=== PATIENT | male | born 1970 | race Caucasian/White ===

== ENCOUNTER 2017-09-19 18:19 | Emergency (ER) | payer SELFPAY ==
[2017-09-19 18:42] VITALS: BP 126/76; PULSE 70; RESP 18; TEMP 98.3; O2SAT 99
[2017-09-19] MEDS ORDERED: ALBUAER3 (21:17)
[2017-09-19 21:20] VITALS: BP 142/86; PULSE 74; RESP 20; O2SAT 96
--- NOTE | 2017-09-19 21:20 | PD ---
HPI Chief Complaint: Respiratory Symptoms Time Seen by Provider: 21:04 Travel History International Travel<30 days: No Contact w/Intl Traveler<30days: No Traveled to known affect area: No History of Present Illness HPI Patient is a 46-year-old [place] male who is coming in with 4 days of severe asthma exacerbation. Patient's had chronic asthma since he was a kid he actually was in [place] they gave him theophylline but he has not taken that years he has a pro-air pump with him which is not helping his symptoms and apparently bought [id number] pseudoephedrine nasal spray without relief of his congestion is a congestion sore throat and wheezing for 4 days he has not seen another doctor and he is only taking the pro-air and the Sudafed nasal spray PFSH Past Medical History Asthma: Yes ?: Not Past Surgical History Surgical History: No Previous Surgery Social History Alcohol Use: Yes (occ) Tobacco Use: No Substance Use: No Allergies-Medications (Allergen,Severity, Reaction): Coded Allergies: No Known Allergies (Verified Allergy, Unknown, 09/19/17) Reported Meds & Prescriptions Reported Meds & Active Scripts Active Guaifenesin AC Liq (Guaifenesin-Codeine Liq) 100-10 Mg/5 Ml Syrp 10 Ml PO Q6H PRN Pseudoephedrine (Pseudoephedrine HCl) 60 Mg Tab 60 Mg PO Q6HR Amoxicillin 250 Mg Cap 250 Mg PO TID Prednisone 50 Mg Tab 50 Mg PO DAILY Ventolin Hfa 18 GM Inh (Albuterol Sulfate) 90 Mcg/Act Aer 2 Puff INH Q6H PRN Reported Proair Hfa (Albuterol Sulfate) 90 Mcg Hfa.aer.ad Review of Systems Except as stated in HPI: all other systems reviewed are Neg Respiratory: Positive: Cough, Shortness of Breath, Wheezing Physical Exam Narrative GENERAL: Patient has no obvious respiratory distress he is able to talk in full sentences SKIN: Warm and dry. HEAD: Atraumatic. Normocephalic. EYES: Pupils equal and round. No scleral icterus. No injection or drainage. ENT: No nasal bleeding or discharge. Mucous membranes pink and moist. Patient has nasal congestion and reddened nares NECK: Trachea midline. No JVD. CARDIOVASCULAR: Regular rate and rhythm. RESPIRATORY: No accessory muscle use. Patient has expiratory wheeze in the upper airway bilateral. Lower lobes did not seem to have expiratory wheeze GASTROINTESTINAL: Abdomen soft, non-tender, nondistended. Hepatic and splenic margins not palpable. MUSCULOSKELETAL: Extremities without clubbing, cyanosis, or edema. No obvious deformities. NEUROLOGICAL: Awake and alert. No obvious cranial nerve deficits. Motor grossly within normal limits. Five out of 5 muscle strength in the arms and legs. Normal speech. PSYCHIATRIC: Appropriate mood and affect; insight and judgment normal. Data Data Last Documented VS Vital Signs Date Time Temp Pulse Resp B/P (MAP) Pulse Ox O2 Delivery O2 Flow Rate FiO2 09/19/17 23:13 09/19/17 22:32 67 20 99 Room Air 09/19/17 22:04 21 09/19/17 18:42 98.3 Orders Orders Albuterol-Ipratropium Neb (Duoneb Neb) (09/19/17 21:30) Prednisone (Deltasone) (09/19/17 21:30) Fluticasone Stan Spr (Flonase Stan Spr) (09/19/17 21:30) Influenzae A/B Antigen (09/19/17 21:21) Group A Rapid Strep Screen (09/19/17 21:21) Pseudoephedrine (Sudafed) (09/19/17 21:45) Strep Culture (Group A) (09/19/17 21:25) Albuterol-Ipratropium Neb (Duoneb Neb) (09/19/17 22:45) Ed Discharge Order (09/19/17 23:09) MDM Medical Decision Making Medical Screen Exam Complete: Yes Emergency Medical Condition: Yes Differential Diagnosis Patient has upper respiratory infection with reactive airway versus asthma versus allergy versus bronchitis versus bronchitis Narrative Course Patient is symptomatically treated with DuoNeb and I order Flonase steroid spray for his nasal congestion as well as Sudafed p.o. and guaifenesin cough syrup. Patient is treated 2 with the DuoNeb he feels much improved flu swab was negative strep throat is negative I discharge him with symptomatic treatment he satting 99 on room air no distress. I give him Rx is for albuterol HFA as well as cough syrup as well as Sudafed as well as the Flonase as well as prednisone and discharged to follow-up as an outpatient Diagnosis Primary Impression: Asthma Qualified Codes: J45.909 - Unspecified asthma, uncomplicated Additional Impression: Upper respiratory infection Patient Instructions: Acute Bronchitis (ED), Asthma (ED), General Instructions Scripts Guaifenesin-Codeine Liq (Guaifenesin AC Liq) 100-10 Mg/5 Ml Syrp 10 ML PO Q6H Y for COUGH, #1 BOTTLE 0 Refills Prov: Gael Guerra MD 09/19/17 Pseudoephedrine (Pseudoephedrine) 60 Mg Tab 60 MG PO Q6HR for Nasal Congestion, #20 TAB 0 Refills Prov: Gael Guerra MD 09/19/17 Amoxicillin (Amoxicillin) 250 Mg Cap 250 MG PO TID for Infection, #21 CAP 0 Refills Prov: Gael Guerra MD 09/19/17 Prednisone (Prednisone) 50 Mg Tab 50 MG PO DAILY, #4 TAB 0 Refills Prov: Gael Guerra MD 09/19/17 Albuterol 18 GM Inh (Ventolin Hfa 18 GM Inh) 90 Mcg/Act Aer 2 PUFF INH Q6H Y for SHORTNESS OF BREATH, #1 INHALER 0 Refills Prov: Gael Guerra MD 09/19/17 Disposition: 01 DISCHARGE HOME Condition: Good Gael Guerra MD Sep 19, 2017 21:20
[2017-09-19] MEDS ORDERED: RESP: ALBUTEROL 2.5 MG/IPRATROPIUM 0.5 MG NEB (SCH) NEB ONE ×2 (21:30→22:45)
[2017-09-19] MEDS ORDERED: FLUTICASONE PROPIONATE 50 MCG/ACT 16 GM NASAL SPRAY NASAL ONE (21:30)
[2017-09-19] MEDS ORDERED: predniSONE 50 MG TAB PO ONE (21:30)
[2017-09-19] MEDS ORDERED: PSEUDOEPHEDRINE HCL 30 MG TAB PO ONE (21:45)
[2017-09-19 22:04] VITALS: O2SAT 96
[2017-09-19 22:32] VITALS: BP 144/93; PULSE 67; RESP 20; O2SAT 99
[2017-09-19] MEDS ORDERED: PRED50 PO (23:05)
[2017-09-19] MEDS ORDERED: VENTAER INH (23:05)
[2017-09-19] MEDS ORDERED: SUDO60TA2 PO (23:05)
[2017-09-19] MEDS ORDERED: AMOX250C3 PO (23:05)
[2017-09-19] MEDS ORDERED: GUAISYP4 PO (23:07)
== END 2017-09-19 23:19 | disposition home or self-care (01) ==
LOC: NEPC 18:19
DX: J45.909 Unspecified asthma, uncomplicated (principal); J06.9 Acute upper respiratory infection, unspecified
CPT/HCPCS: 87081; 87804; 87880; 94640; 94664; 99283; J7512